=== PATIENT | male | born 1980 | race Two or more races ===

== ENCOUNTER 2021-10-05 04:52 | Outpatient (CLI) | payer OTHER | END 2021-10-05 11:54 | disposition home or self-care (01) | LOC: LAB 04:52 | DX: Z20.818 Contact with and (suspected) exposure to other bacterial communicable diseases (principal); Z20.828 Contact with and (suspected) exposure to other viral communicable diseases ==

== ENCOUNTER 2022-11-22 06:22 | Outpatient (CLI) | payer OTHER | END 2022-11-22 06:23 | disposition home or self-care (01) | LOC: LAB 06:22 | PROVIDERS: ATTEND Obstetrics & Gynecology | DX: Z20.828 Contact with and (suspected) exposure to other viral communicable diseases (principal) ==